=== PATIENT | female | born 1985 | race Two or more races ===

== ENCOUNTER 2025-06-13 16:11 | Emergency (ER) | payer MEDICAID, OTHER ==
[~2025-06-13] VITALS: Ht 160 cm; Wt 74.0 kg
[2025-06-13] MEDS ORDERED: KETOROLAC TROMETH 60MG/2ML VIAL IM ONE (18:45)
[2025-06-13] MEDS: HYDROcodone-ACET 5/325MG TAB PO ONE (18:51)
[2025-06-13] MEDS: KETOROLAC TROMETH 30 MG/ML 1ML VIAL IV ONE (18:57)
--- NOTE | 2025-06-13 19:33 | DVH ---
CLINICAL HISTORY: s/p injury and pain TECHNIQUE: 3 views of the lumbar spine were obtained. COMPARISON: None FINDINGS: The alignment of the lumbar spine is normal. The vertebral body heights and intervertebral disc spaces are well maintained. No acute fracture or dislocation is seen. IMPRESSION: NO ACUTE RADIOGRAPHIC ABNORMALITY OF THE LUMBAR SPINE.
--- NOTE | 2025-06-13 19:41 | DVH ---
CLINICAL INDICATION: s/p fall injury and pain TECHNIQUE: 2 radiographic views of the right tibia and fibula were obtained. COMPARISON: None FINDINGS/IMPRESSION: Bony alignment is normal. No fractures or dislocations. No radiopaque foreign bodies.
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
[2025-06-13 19:56] VITALS: BP 122/98; PULSE 87; RESP 16; TEMP 98; O2SAT 99
== END 2025-06-13 20:10 | disposition home or self-care (01) ==
LOC: EDBD 16:11 → ER 16:11
DX: S39.012A Strain of muscle, fascia and tendon of lower back, initial encounter (principal); S80.11XA Contusion of right lower leg, initial encounter; W19.XXXA Unspecified fall, initial encounter; Y93.89 Activity, other specified; Y92.89 Other specified places as the place of occurrence of the external cause; Y99.8 Other external cause status
CPT/HCPCS: 72100; 73590; 82947; 96374; 99284; J1885